=== PATIENT | male | born 1980 | race Caucasian/White ===

== ENCOUNTER → 2020-07-14 | Outpatient (CLI) | payer BC ==
--- NOTE | 2020-07-14 09:27 | RAD ---
EXAM: Mandible, 2 views. HISTORY: Osteomyelitis. COMPARISON: None. FINDINGS: 2 views of the mandible are obtained. There is no fracture, dislocation or subluxation. The re is no sinus opacification or air-fluid level. There is no significant nasal septal deviation. IMPRESSION: No radiographic evidence of osteomyelitis. Note is made that a maxillofacial MRI may be u seful if there is concern for radiographically occult osteomyelitis. Electronically signed by: Bethany Stephens MD (07/14/2020 9:24 AM) [id number]
--- NOTE | 2020-07-14 10:07 | RAD ---
EXAM: Abdomen sonogram. HISTORY: Pain and nausea. TECHNIQUE: Sonographic imaging of the abdomen was performed. COMPARISON: None. FINDINGS: The liver is normal in size. The common bile duct is normal in caliber. The gallbladder is unremarkable. The kidneys are normal in size. There is no hydronephrosis. The spleen is normal in siz e. The aorta and inferior vena cava are patent and normal in caliber. The pancreas is obscured due to bowel gas. IMPRESSION: No acute sonographic finding. Electronically signed by: Bethany Stephens MD (07/14/2020 10:04 AM) [id number]
[2020-07-14 10:17] LABS: BASO % 1 % (0-3); EOS # 0.1 x10^3/uL (0.0-0.7); EOS % 2 % (0-3); HEMATOCRIT 47.8 % (39.0-53.0); HEMOGLOBIN 16.1 g/dL (13.0-17.5); LYMPH # 1.2 x10^3/uL (1.0-4.8); LYMPH % 32 % (24-48); MEAN CORPUSCULAR HEMOGLOBIN 30 pg (25-35); MEAN CORPUSCULAR HGB CONC 34 g/dL (31-37); MEAN CORPUSCULAR VOLUME 91 fL (79-100); MONO # 0.4 x10^3/uL (0.0-1.1); MONO % 10 % (0-9); NEUT # 2.1 x10^3uL (1.8-7.7); NEUT % 55 % (31-73); PLATELET COUNT 245 x10^3/uL (140-400); RED BLOOD COUNT 5.28 x10^6/uL (4.30-5.70); RED CELL DISTRIBUTION WIDTH 13.3 % (11.5-14.5); WHITE BLOOD COUNT 3.9 x10^3/uL (4.0-11.0)
[2020-07-14 10:40] LABS: ALBUMIN 3.7 g/dL (3.4-5.0); ALBUMIN/GLOBULIN RATIO 1.2 (1.0-1.7); ALK PHOS 65 U/L (46-116); ALT (SGPT) 29 U/L (16-63); ANION GAP 8 (6-14); AST (SGOT) 16 U/L (15-37); BLOOD UREA NITROGEN 11 mg/dL (8-26); BUN/CREATININE RATIO 10 (6-20); CALCIUM 8.4 mg/dL (8.5-10.1); CARBON DIOXIDE 29 mmol/L (21-32); CHLORIDE 104 mmol/L (98-107); CREATININE 1.1 mg/dL (0.7-1.3); GFR 73.8; GLUCOSE 99 mg/dL (70-99); SODIUM 141 mmol/L (136-145); TOTAL BILIRUBIN 0.6 mg/dL (0.2-1.0); TOTAL PROTEIN 6.8 g/dL (6.4-8.2)
[2020-07-14 10:44] LABS: C REACTIVE PROTEIN < 0.5 mg/L (0-3.3)
--- NOTE | 2020-07-14 13:36 | RAD ---
EXAM: Nuclear bone scan. HISTORY: Right jaw pain. Infection status post wisdom tooth extraction. TECHNIQUE: Following the intravenous injection of 25 mCi of Tc 99m labeled methylene diphosphonate (M DP), scintigraphic images of the head and neck upper thorax were obtained. COMPARISON: Mandible radiographs obtained on the same date. FINDINGS: There is asymmetric increased radiotracer activity within the lateral right mandible. There is suspected degenerative radiotracer activity involving the bilateral shoulders and cervical spine. IMPRESSION: Focal asymmetric greater tracer activity involving the lateral right mandible. If this co rresponds with the site of pain and recent tooth extraction, this may be postoperative or due to oste omyelitis. Electronically signed by: Bethany Stephens MD (07/14/2020 1:34 PM) [id number]
[2020-07-14 13:47] LABS: BACTERIA,URINE 0 /HPF (0-FEW); BILIRUBIN,URINE NEG (NEG); CLARITY,URINE CLEAR; COLOR,URINE YELLOW; GLUCOSE,URINE NEG (NEG); NITRITE,URINE NEG (NEG); RBC,URINE 0 /HPF (0-2); SQUAMOUS EPITHELIAL CELL,UR OCC /LPF; UROBILINOGEN,URINE 0.2 mg/dL (0.2 mg/dL); WBC,URINE OCC /HPF (0-4)
[2020-07-15 01:11] LABS: HEMOGLOBIN A1C 5.1 % (4.8-5.6)
== END ==
LOC: US 08:48 → EDBD 08:48
PROVIDERS: ATTEND Family Medicine
DX: M27.2 Inflammatory conditions of jaws (principal); R10.13 Epigastric pain; R11.0 Nausea; R10.32 Left lower quadrant pain
CPT/HCPCS: 70110; 76700; 78300; 80053; 81001; 83036; 85025; 86140; A9503; 36415

== ENCOUNTER → 2020-07-18 | Outpatient (CLI) | payer BC ==
[~2020-07-18] MED LIST: IOHEXOL 300 MG/ML 75 ML VIAL. IV ONE
--- NOTE | 2020-07-18 13:02 | RAD ---
PQRS Compliance Statement: One or more of the following individualized dose reduction techniques were utilized for this examinat ion: 1. Automated exposure control 2. Adjustment of the mA and/or kV according to patient size 3. Use of iterative reconstruction technique CT MAXILLOFACIAL WITH IV CONTRAST 07/18/2020 8:22 AM Indication: Osteomyelitis COMPARISON: Bone scan 07/14/2020 TECHNIQUE: Multiple axial CT images of the maxilla facial structures were obtained after the intraven ous administration of nonionic contrast. Coronal and sagittal reformats are provided. FINDINGS: No suspicious abnormalities identified within the visualized portions of the brain parenchyma and pos terior fossa. [place] of [place] appears intact as visualized. Orbits are normal in appearance. Globes are spherical and contour. No lens dislocation. Optic nerves are intact. Extraocular muscles are norm al in appearance. Paranasal sinuses are well aerated. Nasal septum is predominantly midline. Ostiomea lawrence units are widely patent. Maxilla is normal in appearance. There is lucency at the site of prior t ooth extraction involving the right posterior mandibular molar. Minimal osseous erosion is identified in this region. No acute fracture is noted. No soft tissue abscess is identified. There is no draina ble fluid collection. Parotid and submandibular spaces are intact. No cervical lymphadenopathy is shannon ntified. IMPRESSION: Suspect a right mandibular molar extraction lucency or erosion. Early osteomyelitis could have simila r appearance and short-term follow-up could be of benefit. No definite soft tissue abscess is visuali zed. Electronically signed by: Alicia Christian MD (07/18/2020 12:59 PM) [id number]
== END ==
LOC: CT 08:04
PROVIDERS: ATTEND Family Medicine
DX: M27.2 Inflammatory conditions of jaws (principal)
CPT/HCPCS: 70487; Q9967

== ENCOUNTER → 2020-07-28 | Outpatient (CLI) | payer BC ==
[2020-07-29 15:09] LABS: FREE T4 0.96 ng/dL (0.76-1.46); THYROID STIM HORMONE (TSH) 2.21 uIU/mL (0.358-3.740)
== END ==
LOC: LAB 12:58
PROVIDERS: ATTEND Family Medicine
DX: T68.XXXA Hypothermia, initial encounter (principal); R53.83 Other fatigue; R53.81 Other malaise; Z83.49 Family history of other endocrine, nutritional and metabolic diseases
CPT/HCPCS: 84439; 84443

== ENCOUNTER → 2020-09-22 | Outpatient (CLI) | payer BC ==
[2020-09-22 16:10] LABS: BASO % 0 % (0-3); EOS % 1 % (0-3); LYMPH # 1.2 x10^3/uL (1.0-4.8); LYMPH % 15 % (24-48); MEAN CORPUSCULAR HEMOGLOBIN 31 pg (25-35); MEAN CORPUSCULAR HGB CONC 34 g/dL (31-37); MEAN CORPUSCULAR VOLUME 90 fL (79-100); MONO # 0.5 x10^3/uL (0.0-1.1); MONO % 6 % (0-9); NEUT # 6.2 x10^3uL (1.8-7.7); NEUT % 78 % (31-73); PLATELET COUNT 265 x10^3/uL (140-400); RED CELL DISTRIBUTION WIDTH 13.4 % (11.5-14.5)
[2020-09-22 16:24] LABS: ALBUMIN 3.7 g/dL (3.4-5.0); ALBUMIN/GLOBULIN RATIO 1.1 (1.0-1.7); C REACTIVE PROTEIN 2.8 mg/L (0-3.3); CALCIUM 8.6 mg/dL (8.5-10.1); CREATININE 1.1 mg/dL (0.7-1.3); GFR 73.8; POTASSIUM 3.6 mmol/L (3.5-5.1); TOTAL BILIRUBIN 0.3 mg/dL (0.2-1.0)
== END ==
LOC: LAB 15:09
PROVIDERS: ATTEND Family Medicine
DX: R19.7 Diarrhea, unspecified (principal); R10.9 Unspecified abdominal pain
CPT/HCPCS: 80053; 85025; 86140; 87493